=== PATIENT | male | born 1995 ===

== ENCOUNTER 2018-02-18 09:24 | Emergency (ER) | payer OTHER ==
[2018-02-18 09:53] VITALS: RESP 19; TEMP 97.9
--- NOTE | 2018-02-18 09:53 | ED PDOC ---
HPI: SOB/CHF/COPD Time Seen by Provider: 02/18/18 09:37 Chief Complaint (Nursing): Shortness Of Breath Chief Complaint (Provider): Shortness Of Breath History Per: Patient History/Exam Limitations: no limitations Onset/Duration Of Symptoms: Days (x4) Associated Symptoms: denies: Fever, Chest Pain, Productive Cough Additional Complaint(s): 22 y/o male with no pmhx presents to ER for evaluation of shortness of breath onset 4 days. Patient reports emptiness first on right side of chest then left. He denies chest pain, cough, fever or any injury. MDM: non provided Past Medical History Reviewed: Historical Data, Nursing Documentation, Vital Signs RAY Report Viewed: Yes - Medical History PMH: No Chronic Diseases - Surgical History Surgical History: No Surg Hx - Family History Family History: States: Unknown Family Hx - Social History Current smoker - smoking cessation education provided: No Alcohol: None Drugs: Denies - Home Medications Home Medications: Ambulatory Orders Medication Instructions Recorded Albuterol HFA [Ventolin HFA 90 2 puff IH Q4H #1 puff 02/18/18 mcg/actuation (8 g)] Azithromycin [Zithromax] 250 mg PO DAILY #6 tab 02/18/18 Hydroxyzine Pamoate [Vistaril] 25 mg PO HS #6 capsule 02/18/18 - Allergies Allergies/Adverse Reactions: Allergies Allergy/AdvReac Type Severity Reaction Status Date / Time No Known Allergies Allergy Verified 02/18/18 09:54 Review of Systems ROS Statement: Except As Marked, All Systems Reviewed And Found Negative Constitutional: Negative for: Fever Cardiovascular: Positive for: Other (Emptiness to right and left side of chest). Negative for: Chest Pain Respiratory: Positive for: Shortness of Breath. Negative for: Cough Physical Exam - Reviewed Nursing Documentation Reviewed: Yes Vital Signs Reviewed: Yes - Physical Exam Appears: Positive for: Non-toxic, No Acute Distress Head Exam: Positive for: ATRAUMATIC, NORMOCEPHALIC Skin: Positive for: Normal Color, Warm, Dry. Negative for: Rash Eye Exam: Positive for: Normal appearance, EOMI, PERRL Neck: Positive for: Normal, Painless ROM, Supple Cardiovascular/Chest: Positive for: Regular Rate, Rhythm. Negative for: Murmur Respiratory: Positive for: Normal Breath Sounds. Negative for: Wheezing, Respiratory Distress Gastrointestinal/Abdominal: Positive for: Normal Exam, Soft. Negative for: Tenderness Back: Positive for: Normal Inspection. Negative for: L CVA Tenderness, R CVA Tenderness Extremity: Positive for: Normal ROM. Negative for: Tenderness, Swelling Neurologic/Psych: Positive for: Alert, Oriented (x3) Medical Decision Making Medical Decision Making: Time: 947 Initial plan: Patient does not appear in respiratory distress --Will obtain CXR Scribe Attestation: Documented by Yojana Carrasquillo, acting as a scribe for Vladislav Ramos MD. Provider Scribe Attestation: All medical record entries made by the Scribe were at my direction and personally dictated by me. I have reviewed the chart and agree that the record accurately reflects my personal performance of the history, physical exam, medical decision making, and the department course for this patient. I have also personally directed, reviewed, and agree with the discharge instructions and disposition. Disposition - Clinical Impression Clinical Impression: Bronchitis - Patient ED Disposition Is Patient to be Admitted: No Counseled Patient/Family Regarding: Studies Performed, Diagnosis, Need For Followup, Rx Given - Disposition Referrals: [facility] [Outside] Disposition: Routine/Home Disposition Time: 11:08 Condition: FAIR Prescriptions: Albuterol HFA [Ventolin HFA 90 mcg/actuation (8 g)] 2 puff IH Q4H #1 puff Azithromycin [Zithromax] 250 mg PO DAILY #6 tab Hydroxyzine Pamoate [Vistaril] 25 mg PO HS #6 capsule Instructions: Acute Bronchitis Forms: [facility] (Bruneian) Print Language: BENGALI
[2018-02-18 11:32] VITALS: BP 137/75; PULSE 60; O2SAT 99
--- NOTE | 2018-02-18 13:41 | RAD ---
Date of service: 02/18/2018 HISTORY: SOB COMPARISON: No prior. TECHNIQUE: Chest PA and lateral FINDINGS: LUNGS: No active pulmonary disease. PLEURA: No significant pleural effusion identified. No pneumothorax apparent. CARDIOVASCULAR: No aortic atherosclerotic calcification present. Normal cardiac size. No pulmonary vascular congestion. OSSEOUS STRUCTURES: No significant abnormalities. VISUALIZED UPPER ABDOMEN: Normal. OTHER FINDINGS: None. IMPRESSION: No active disease.
== END 2018-02-18 11:55 | disposition home or self-care (01) ==
LOC: MERGE 09:24 → H.ER 09:24
DX: J40 Bronchitis, not specified as acute or chronic (principal)